=== PATIENT | female | born 1950 | race Two or more races ===

== ENCOUNTER 2016-04-27 08:01 | Day surgery (SDC) | payer MEDICARE, MEDICAID ==
[2016-04-27] MEDS ORDERED: LACTATED RINGERS 1,000 ML IV SCH ×3 (08:20→12:11)
[2016-04-27] MEDS ORDERED: LIDOCAINE 1% 2 ML VIAL ID PRN (08:20)
[2016-04-27] MEDS ORDERED: LACTATED RINGERS 1,000 ML ONE (08:24)
[2016-04-27] MEDS ORDERED: IV START KIT ONE (08:24)
[2016-04-27] MEDS ORDERED: CEFAZOLIN SODIUM 2 GRAM PREMIX 2 G in Premix (D5W) 100 ml 1 EACH IV PRN (09:52)
[2016-04-27] MEDS ORDERED: FENTANYL 100 MCG/2 ML VIAL ONE (10:56)
[2016-04-27] MEDS ORDERED: PROPOFOL 20 ML IV ONE (11:22)
[2016-04-27] MEDS ORDERED: METOCLOPRAMIDE HCL 5 MG/ML 2ML VIAL ONE (11:22)
[2016-04-27] MEDS ORDERED: ONDANSETRON 4 MG/2ML 2 ML VIAL ONE (11:22)
[2016-04-27] MEDS ORDERED: KETOROLAC TROMETHAMINE 30 MG/ML 1 ML VIAL ONE (11:22)
[2016-04-27] MEDS ORDERED: FAMOTIDINE 10 MG/ML 2ML VIAL ONE (11:22)
[2016-04-27] MEDS ORDERED: HYDRALAZINE HCL 20 MG/1 ML VIAL IV PRN (11:32)
[2016-04-27] MEDS ORDERED: ATROPINE SULFATE 0.4 MG/1 ML VIAL IV PRN (11:32)
[2016-04-27] MEDS ORDERED: MORPHINE SULFATE 4 MG/ML SYRINGE IV PRN (11:32)
[2016-04-27] MEDS ORDERED: PROMETHAZINE HCL 25 MG/ML VIAL IM PRN (11:32)
[2016-04-27] MEDS ORDERED: MEPERIDINE 25 MG/ML SYRINGE IV PRN (11:32)
[2016-04-27] MEDS ORDERED: NALOXONE HCL 0.4 MG/ML VIAL IV PRN (11:32)
[2016-04-27] MEDS ORDERED: OXYCODONE HCL 5 MG TABLET PO PRN (12:11)
[2016-04-27] MEDS ORDERED: ONDANSETRON 4 MG/2ML 2 ML VIAL IV PRN (12:11)
--- NOTE | 2016-04-27 12:57 | OP ---
Sanjana Rhoades DATE: 04/27/2016 SURGEON: Yovani Biggs M.D. PREOPERATIVE DIAGNOSIS: Intrauterine mass. POSTOPERATIVE DIAGNOSIS: Intrauterine mass. OPERATION: Hysteroscopy and excision of intrauterine mass. FINDINGS: There was a large mass attached to the anterior fundal portion of the uterus. TECHNICAL PROCEDURE: After induction of satisfactory general anesthesia the patient was placed in the supine lithotomy position and prepped and draped in the usual fashion. A weighted speculum was placed in the vagina and the cervix grasped with a single tooth tenaculum. The endocervix was dilated using progressively larger Champion dilators to a 27-Upper Sor[place]. The hysteroscope was introduced and the above findings noted. Using the resectoscope loop the mass was resected in its entirety. Hemostasis was assured. The instruments were then removed and the procedure terminated. The patient tolerated the procedure well and left the operating room awake and in good condition. There were no complications. Instrument, needle, and sponge counts were correct. Estimated blood loss was 10 mL. There was no blood replacement. Specimens removed were fragments of an endometrial mass. JOB: [id number]
[2016-04-27] MEDS ORDERED: KETOROLAC TROMETHAMINE 30 MG/ML 1 ML VIAL IV PRN (17:30)
== END 2016-04-27 13:49 | disposition home or self-care (01) ==
LOC: SDC 08:01
PROVIDERS: ATTEND Obstetrics & Gynecology
PROC: 0UB98ZX Excision of Uterus, Via Natural or Artificial Opening Endoscopic, Diagnostic (ICD-10-PCS; principal; 2016-04-27)
PROC: 0UDB8ZX Extraction of Endometrium, Via Natural or Artificial Opening Endoscopic, Diagnostic (ICD-10-PCS; 2016-04-27)
DX: N85.00 Endometrial hyperplasia, unspecified (principal); I10 Essential (primary) hypertension; E78.00 Pure hypercholesterolemia, unspecified; G47.33 Obstructive sleep apnea (adult) (pediatric); F32.9 Major depressive disorder, single episode, unspecified; K21.9 Gastro-esophageal reflux disease without esophagitis; Z79.82 Long term (current) use of aspirin; Z88.5 Allergy status to narcotic agent
CPT/HCPCS: 58558; J3010; J2765; J1885; J2405; J7120